=== PATIENT | female | born 1945 | race Caucasian/White ===

== ENCOUNTER → 2017-06-24 | Day surgery (SDC) | payer MEDICARE, OTHER ==
--- NOTE | 2017-06-24 09:11 | MMO ---
STEREOTACTIC GUIDED LEFT BREAST BIOPSY: Clinical history: Indeterminate left breast calcifications. Procedure: Informed consent was obtained. Patient was escorted to the procedural suite. Patient's left breast w as placed into compression on the stereotactic table and was then prepped and draped in standard dima rile fashion. Topical anesthesia was achieved with buffered 1% Lidocaine. Small skin incision was ma de through which a 10 gauge stereotactic biopsy needle was advanced to the leading edge of calcifica tions. This was confirmed and then deployed into the site of calcifications. Subsequently, six core specimens were acquired. Specimen radiograph reveals calcifications of interest in the biopsied specimens. Biopsy needle was then removed. Biopsy marking clip was advanced to and deployed within the site of biopsy. This was c onfirmed with mammographic imaging. No procedural complications. Patient was transferred to mammography to undergone post procedural clip placement views. IMPRESSION: Technically successful stereotactic left breast biopsy. Pathology results are pending. Patient will be notified upon receipt of the pathology results. POS: MARLENY
--- NOTE | 2017-06-24 09:16 | MMO ---
DIAGNOSTIC LEFT MAMMOGRAM: Clinical history: Status post left breast stereotactic biopsy with clip deployment. FINDINGS: There is heterogeneously dense breast parenchyma of the left breast. There has been deployment of a biopsy marker clip with interval reduction in number of previous calcifications of interest. IMPRESSION: Deployment of biopsy marking clip at site of prior calcifications which have decreased in number sta tus post stereotactic biopsy. POS: MARLENY
--- NOTE | 2017-06-24 16:01 | MMO ---
SPECIMEN RADIOGRAPH: Clinical history: Stereotactic biopsy. Specimen radiograph evaluation. FINDINGS: Radiographic of specimens reveal calcifications of interest. IMPRESSION: Calcifications of interest are present within the radiographic specimens status post stereotactic bi opsy of left breast. POS: MARLENY
== END ==
LOC: MAMMO 06:56
PROVIDERS: ATTEND Family Medicine
DX: D24.2 Benign neoplasm of left breast (principal)
CPT/HCPCS: 19081; 76098; 88305; G0206

== ENCOUNTER 2018-06-03 07:50 | Outpatient (CLI) | payer MEDICARE, OTHER | END 2018-06-03 07:51 | disposition home or self-care (01) | LOC: BICMAMMO 07:50 | PROVIDERS: ATTEND Family Medicine | DX: Z12.31 Encounter for screening mammogram for malignant neoplasm of breast (principal) | CPT/HCPCS: 77063; 77067 ==

== ENCOUNTER 2018-07-12 09:45 | Outpatient (CLI) | payer MEDICARE, OTHER ==
--- NOTE | 2018-07-12 11:55 | RAD ---
LUMBAR SPINE THREE VIEWS: History: Lumbar radiculopathy. FINDINGS: Lateral views were obtained in the neutral, flexion, and extension positions. Lumbar vertebrae mainta in normal height and alignment. Moderate degenerative disc changes are seen at all levels with loss o f disc space at all levels of the lumbar spine. Moderate osteophytes are present. Prominent facet hyp ertrophy. No evidence of spondylolisthesis. No significant change in alignment with flexion or extens ion. IMPRESSION: Moderate to severe hypertrophic degenerative changes and degenerative disc changes as described. POS: MARLENY
--- NOTE | 2018-07-12 12:42 | MRI ---
NONCONTRAST ENHANCED MRI OF THE LUMBAR SPINE: History: M54.16. Left bilateral leg pain and weakness, more prominent on the left. Technique: Multiplanar, multisequence noncontrast enhanced MRI images were obtained of the lumbar spi ne. FINDINGS: T12-L1: Mild facet hypertrophy obtained. The central canal and neural foramen are patent. L1-2: Disc desiccation is seen. There is mild facet hypertrophy. No significant degree of central or neural foraminal narrowing is seen. L2-3: Disc desiccation is seen. There is a broad based disc bulge with bilateral facet and ligamentum flavum hypertrophy resulting in minimal but not significant degree of central and lateral recess dima nosis. The neural foramen are patent. L3-4: Disc desiccation is seen. There is disc space height loss. There is a broad based disc osteophy te complex centrally with bilateral facet and ligamentous flavum hypertrophy resulting in a moderate degree of central and lateral recess stenosis. There is moderate right and minimal left sided neural foraminal narrowing. L4-5: Disc desiccation is seen. There is broad based disc osteophyte complex centrally. There is bila teral facet and ligamentum flavum hypertrophy. This results in moderate degree of central spinal sten osis. There is moderate to severe left L4-5 lateral recess stenosis. The right L4-5 lateral recess is patent. There is moderate bilateral neural foraminal narrowing due to the facet hypertrophy. L5-S1: Disc desiccation is seen. There is bilateral facet hypertrophy and some ligamentum flavum hype rtrophy. This results in mild to moderate left L5-S1 lateral recess stenosis. There is moderate to se torito left L5-S1 neural foraminal narrowing. There is mild to moderate right sided L5-S1 neural forami nal narrowing seen. IMPRESSION: Multilevel disc osteophyte complexes with facet hypertrophy resulting in predominately left sided lat eral recess stenosis. There is also multilevel areas of neural foraminal narrowing as described above . POS: MARLENY
== END 2018-07-12 09:46 | disposition home or self-care (01) ==
LOC: TBSIIMAG 09:45
PROVIDERS: ATTEND Anesthesiology Pain Medicine
DX: M47.26 Other spondylosis with radiculopathy, lumbar region (principal); M51.16 Intervertebral disc disorders with radiculopathy, lumbar region; M25.78 Osteophyte, vertebrae; M48.061 Spinal stenosis, lumbar region without neurogenic claudication; M99.83 Other biomechanical lesions of lumbar region
CPT/HCPCS: 72100; 72148

== ENCOUNTER 2018-08-18 01:13 | Observation (INO) | payer MEDICARE, OTHER ==
[2018-08-18] MEDS ORDERED: niCARdipine 20MG In NaCl 20 MG/200 ML BAG ONE (01:19)
[2018-08-18 04:00] LABS: Troponin I 0.018 ng/mL (< 0.028)
[2018-08-18 07:37] LABS: Troponin I 0.023 ng/mL (< 0.028)
[2018-08-18] MEDS ORDERED: HYDROcodone/Acetaminophen 5/325 mg Tablet PO PRN ×2 (09:21)
[2018-08-18] MEDS ORDERED: Acetaminophen 325 MG TAB PO PRN (09:21)
[2018-08-18] MEDS ORDERED: Acetaminophen 650 MG Suppository PR PRN (09:21)
[2018-08-18] MEDS ORDERED: Amlodipine 5 MG TAB ONE (09:32)
[2018-08-18] MEDS ORDERED: Spironolactone 25 MG TAB PO SCH (10:15)
[2018-08-18] MEDS ORDERED: Amlodipine 10 MG TAB PO SCH (10:15)
[2018-08-18] MEDS ORDERED: Carvedilol 6.25 MG TAB PO SCH ×2 (10:15→17:00)
[2018-08-18] MEDS ORDERED: Lisinopril/Hydrochlorothiazide 20 mg/12.5 mg Tablet PO SCH (10:15)
[2018-08-18] MEDS ORDERED: hydrALAZINE 20 MG/ML VIAL ONE (10:55)
[2018-08-18] MEDS ORDERED: hydrALAZINE 20 MG/ML VIAL SLOW IVP SCH (11:15)
[2018-08-18] MEDS ORDERED: Famotidine 20 MG TAB PO SCH (21:00)
[2018-08-19] MEDS ORDERED: Spironolactone 25 MG TAB PO SCH (08:00)
[2018-08-19] MEDS ORDERED: Amlodipine 5 MG TAB PO SCH (09:00)
[2018-08-19] MEDS ORDERED: Lisinopril/Hydrochlorothiazide 20 mg/12.5 mg Tablet PO SCH (09:00)
== END 2018-08-18 14:50 | disposition home or self-care (01) ==
LOC: ERS 01:13 → ERHOLD 05:33
PROVIDERS: ADMIT Internal Medicine; ATTEND Internal Medicine
DX: I16.0 Hypertensive urgency (principal); I10 Essential (primary) hypertension; G43.909 Migraine, unspecified, not intractable, without status migrainosus; Z79.899 Other long term (current) drug therapy
CPT/HCPCS: 84484 ×2; 96365; 96375; 99285; G0378; 36415; J0360

== ENCOUNTER 2019-10-04 08:25 | Outpatient (CLI) | payer MEDICARE, OTHER ==
--- NOTE | 2019-10-04 09:13 | MMO ---
Bilateral MAMMO Bilat Screen [facility]. CLINICAL HISTORY: Patient is 73 years old and is seen for screening. The patient has no family history of breast cancer. The patient has no personal history of cancer. VIEWS: The views performed were: bilateral craniocaudal with tomosynthesis and bilateral mediolateral oblique with tomosynthesis. FILMS COMPARED: The present examination has been compared to prior imaging studies performed at [facility] on 06/02/2017, 06/07/2017, 06/24/2017 and 06/03/2018. This study has been interpreted with the assistance of computer-aided detection. MAMMOGRAM FINDINGS: The breasts are heterogeneously dense, which could obscure a lesion on mammography. There are benign appearing calcifications. A biopsy clip is seen in the left breast. There are no suspicious masses, suspicious calcifications, or new areas of architectural distortion. IMPRESSION: THERE IS NO MAMMOGRAPHIC EVIDENCE OF MALIGNANCY. A ROUTINE FOLLOW-UP MAMMOGRAM IN 1 YEAR IS RECOMMENDED. THE RESULTS OF THIS EXAM WERE SENT TO THE PATIENT. ACR BI-RADS Category 2 - Benign finding MAMMOGRAPHY NOTE: 1. A negative mammogram report should not delay a biopsy if a dominant of clinically suspicious mass is present. 2. Approximately 10% to 15% of breast cancers are not detected by mammography. 3. Adenosis and dense breasts may obscure an underlying neoplasm. Reported by: CHRIS FERNÁNDEZ MD Electonically Signed: [id number]
== END 2019-10-04 08:26 | disposition home or self-care (01) ==
LOC: BICMAMMO 08:25
PROVIDERS: ATTEND Family Medicine
DX: Z12.31 Encounter for screening mammogram for malignant neoplasm of breast (principal)
CPT/HCPCS: 77063; 77067

== ENCOUNTER 2020-02-05 10:24 | Outpatient (CLI) | payer MEDICARE, OTHER ==
--- NOTE | 2020-02-05 11:11 | RAD ---
EXAM: XR Lumbar Spine 2 Or 3 View PROVIDED CLINICAL HISTORY: Lumbar radiculopathy. Patient complains of low back pain greater on the left. COMPARISON: 07/12/2018 5 FINDINGS: 5 nonrib-bearing lumbar type vertebral bodies are seen. Multilevel osteophytes are seen with narrowin g of the intervertebral disc spaces at all levels of lumbar spine greatest at the L4-5 level where there is severe loss of intervertebral disc height and endplate sclerosis. The vertebral body heights are within normal limits. No fracture or subluxation is seen based on lateral views. No abnormal translational motion is seen between the flexion-extension views. Facet degenerative changes are seen in the lumbar spine. Vascular calcifications are seen overlying the abdomen and involving the abdominal aorta and iliac ar teries. IMPRESSION: Multilevel degenerative changes lumbar spine without vertebral body height loss or evidence of sublux ation.
--- NOTE | 2020-02-05 11:55 | MRI ---
MRI Lumbar Spine Noncontrast: HISTORY: Muscle spasm and back. Lower back pain on left side with failed pain injections. COMPARISON: 07/12/2018 FINDINGS: Hyperintense lesions are again seen in the right kidney most compatible with small cysts. Remainder o f the visualized retroperitoneal structures demonstrate a normal MRI appearance. Conus medullaris is normal in morphology and terminates at the L1-2 level. Multilevel degenerative changes are present with narrowing of the intervertebral disc spaces at all l evels and endplate degenerative changes present. A few scattered Schmorl's nodes are present. Left convex scoliosis lumbar spine is again seen. T12-L1: Mild facet degenerative changes. Mild disc osteophyte complex present without significant tara tral canal or neural foraminal narrowing. L1-2: Mild disc osteophyte complex and facet hypertrophic changes. No significant central canal or ne ural foraminal narrowing. L2-3: Broad-based disc osteophyte complex and facet hypertrophic changes. Mild central canal narrowin g is present. A right paracentral disc protrusion is present which results in mass effect on the right anterolateral aspect of the thecal sac and the traversing right L3 nerve root. This is stable f rom prior exam. Neural foramina are patent. L3-4: Disc osteophyte complex and facet hypertrophic changes resulting in mild narrowing of the centr al spinal canal. Mild right-sided neural foraminal narrowing is present. The left neural foramen is patent. L4-5: Broad-based disc osteophyte complex and facet hypertrophic changes with ligamentous thickening. [id number] central canal narrowing is present with narrowing of the lateral recesses. Moderate bilateral neural foraminal narrowing is again seen and similar to prior study. L5-S1: Broad-based disc osteophyte complex and facet hypertrophic changes with facet hypertrophic luis fernando nges greater on the left where there is associated mild ligamentous thickening. A far lateral left disc osteophyte complex is also present. Moderate to severe left-sided neural foraminal narrowing is present with mild right-sided neural foraminal narrowing. IMPRESSION: 1. Multilevel degenerative changes throughout the lumbar spine not significantly progressed when comp ared to the prior study. 2. Left convex scoliosis lumbar spine.
== END 2020-02-05 10:25 | disposition home or self-care (01) ==
LOC: TBSIIMAG 10:24
PROVIDERS: ATTEND Anesthesiology Pain Medicine
DX: M47.26 Other spondylosis with radiculopathy, lumbar region (principal); M62.830 Muscle spasm of back; M41.86 Other forms of scoliosis, lumbar region
CPT/HCPCS: 72100; 72148

== ENCOUNTER 2021-04-10 08:53 | Outpatient (CLI) | payer MEDICARE, OTHER | END 2021-04-10 08:54 | disposition home or self-care (01) | LOC: BICMAMMO 08:53 | PROVIDERS: ATTEND Family Medicine | DX: Z12.31 Encounter for screening mammogram for malignant neoplasm of breast (principal) | CPT/HCPCS: 77063; 77067 ==

== ENCOUNTER 2021-10-30 14:15 | Outpatient (CLI) | payer MEDICARE, OTHER ==
[2021-10-30 15:12] LABS: #Basophils 0.1 10x3/uL (0.0-0.2); #Eosinphils 0.2 10x3/uL (0.0-0.5); #Monocytes 0.9 10x3/uL (0.0-1.1); #Neutrophils 4.7 10x3/uL (1.5-8.4); %Basophils 0.6 % (0.0-2.0); %Eosinophils 1.7 % (0.0-6.0); %Lymphocytes 35.9 % (18.0-47.0); %Monocytes 9.7 % (0.0-10.0); %Neutrophils 51.9 % (40.0-75.0); Hemoglobin 13.5 g/dL (12.0-15.5); Mean Corpuscular HGB CONC 33.2 g/dL (32.0-36.0); Mean Corpuscular Volume 96.4 fl (81.6-98.3); Mean Platelet Volume 9.7 fl (7.4-10.4); Platelet Count 298 10x3/uL (150-450); RBC Distribution Width 12.8 % (11.5-14.5); Red Blood Cell (RBC) Count 4.22 10x6/uL (3.90-5.03); White Blood Cell (WBC) Count 9.1 10x3/uL (3.5-10.5)
[2021-10-30 15:26] LABS: Prothrombin Time 10.8 sec (9.5-12.1)
[2021-10-30 15:39] LABS: Anion Gap 15 mmol/L (10-20); BUN (Urea Nitrogen) 20 mg/dL (9.8-20.1); Calc. Creatinine Clearance 0 mL/min (70-130); Calcium 10.5 mg/dL (7.8-10.44); Carbon Dioxide 27 mmol/L (23-31); Chloride 107 mmol/L (98-107); Glucose 110 mg/dL (83-110); Potassium 4.3 mmol/L (3.5-5.1); Sodium 145 mmol/L (136-145)
[2021-10-31 00:12] LABS: SARS-CoV-2 PCR by NAA Not Detected (NotDetected)
== END 2021-10-30 14:16 | disposition home or self-care (01) ==
LOC: LABBT 14:15
PROVIDERS: ATTEND Orthopaedic Surgery
DX: Z01.818 Encounter for other preprocedural examination (principal); M17.12 Unilateral primary osteoarthritis, left knee; Z20.822 Contact with and (suspected) exposure to COVID-19
CPT/HCPCS: 80048; 85025; 85610; 87081; 93005; U0003; U0005; 93010

== ENCOUNTER 2021-11-04 06:15 | Observation (INO) | payer MEDICARE, OTHER ==
[2021-10-29 11:05] VITALS: BMI 24.3
[2021-11-04] MEDS ORDERED: Tranexamic Acid 1,000 MG/10 ML VIAL ONE (07:43)
[2021-11-04] MEDS ORDERED: Vancomycin 1 GM/200 ML BAG ONE (07:43)
[2021-11-04] MEDS ORDERED: Sodium Chloride 0.9% 100 ML ONE (08:12)
[2021-11-04] MEDS ORDERED: Midazolam HCl 2 mg/2 ml Vial ONE (08:12)
[2021-11-04] MEDS ORDERED: Fentanyl 100 MCG/2 ML VIAL IV PRN (08:39)
[2021-11-04] MEDS ORDERED: traMADol HCl 50 MG TAB PO PRN ×2 (08:45)
[2021-11-04] MEDS ORDERED: Zolpidem Tartrate 5 MG TAB PO PRN ×2 (08:45→10:44)
[2021-11-04] MEDS ORDERED: Ondansetron PF 4 MG/2 ML Vial IVP PRN ×2 (08:45→10:44)
[2021-11-04] MEDS ORDERED: HYDROcodone/Acetaminophen 10/325 mg Tablet PO PRN (08:45)
[2021-11-04] MEDS ORDERED: Ropivacaine 0.2% 550 ML 550 ML NERVE BLCK SCH (08:45)
[2021-11-04] MEDS ORDERED: Promethazine HCl 25 MG/ML VIAL IM PRN ×2 (08:45→10:44)
[2021-11-04] MEDS ORDERED: Bupivacaine PF 0.5% 30 ML VIAL ONE (09:04)
[2021-11-04] MEDS ORDERED: Fentanyl 250 MCG/5 ML VIAL ONE ×2 (09:08→10:50)
[2021-11-04] MEDS ORDERED: ceFAZolin Sodium (SDC) 2 GM/100 ML BAG ONE (09:10)
[2021-11-04] MEDS ORDERED: Lidocaine 1% PF 5 ML VIAL ONE (09:28)
[2021-11-04] MEDS ORDERED: PROPOFOL 200 MG/20 ML VIAL ONE (09:28)
[2021-11-04] MEDS ORDERED: PHENYLEPHRINE-NS 100 MCG/ML 10 ML SYRINGE ONE (09:28)
[2021-11-04] MEDS ORDERED: Bupivacaine HCl 0.5%/Epinephrine 1:200,000/PF 30 ml Vial ONE (09:28)
[2021-11-04] MEDS ORDERED: Dexamethasone 20 MG/5 ML VIAL ONE (09:28)
[2021-11-04] MEDS ORDERED: Ondansetron PF 4 MG/2 ML Vial ONE (09:28)
[2021-11-04] MEDS ORDERED: ePHEDrine 50 MG/ML VIAL ONE (09:28)
[2021-11-04] MEDS ORDERED: Acetaminophen 325 MG TAB PO PRN (10:44)
[2021-11-04] MEDS ORDERED: diphenhydrAMINE 25 MG CAP PO PRN (10:44)
[2021-11-04] MEDS ORDERED: Meclizine HCl 25 MG TAB PO PRN (10:45)
[2021-11-04] MEDS ORDERED: Amitriptyline HCl 25 MG TAB PO PRN (10:45)
[2021-11-04] MEDS ORDERED: Sucralfate 1 GM TAB PO PRN (10:45)
[2021-11-04] MEDS ORDERED: ceFAZolin 2 GM/Dextrose 50 ML 2 GM in Premix Bag 1 BAG IVPB SCH (10:45)
[2021-11-04] MEDS ORDERED: Acetaminophen ER (8hr) 650 MG TAB PO PRN (10:45)
[2021-11-04] MEDS ORDERED: Rizatriptan Benzoate 10 MG MLT TAB PO PRN (10:45)
[2021-11-04] MEDS ORDERED: Promethazine 25 MG TAB PO PRN (10:45)
[2021-11-04] MEDS ORDERED: HYDROmorphone 0.5 MG/0.5 ML SYRINGE ONE ×2 (11:02→11:22)
[2021-11-04] MEDS: Ketorolac Tromethamine 30 MG/ML VIAL IVP SCH ×2 (13:00→17:11)
[2021-11-04] MEDS: HYDROcodone/Acetaminophen 10/325 mg Tablet PO PRN ×3 (13:00→21:21)
[2021-11-04] MEDS: Sodium Chloride 0.9% 1,000 ML IV SCH ×2 (16:35→20:32)
[2021-11-04] MEDS: CEFAZOLIN 2 GM, Admixture Fee 1 EACH in Sodium Chloride 0.9% 100 ML IVPB SCH (17:04)
[2021-11-04] MEDS: Carvedilol 6.25 MG TAB PO SCH (17:04)
[2021-11-04] MEDS: Atorvastatin Calcium 20 MG TAB PO SCH (20:31)
[2021-11-04] MEDS: Aspirin 81 mg Enteric Coated Tablet PO SCH (20:31)
[2021-11-04] MEDS: Lisinopril/Hydrochlorothiazide 20 mg/12.5 mg Tablet PO SCH (20:31)
[2021-11-05] MEDS: CEFAZOLIN 2 GM, Admixture Fee 1 EACH in Sodium Chloride 0.9% 100 ML IVPB SCH (00:44)
[2021-11-05] MEDS: Ketorolac Tromethamine 30 MG/ML VIAL IVP SCH ×4 (00:44→17:37)
[2021-11-05 05:26] LABS: Hemoglobin 11.9 g/dL (12.0-16.0); Mean Corpuscular HGB CONC 33.2 g/dL (32.0-36.0); Mean Corpuscular Hemoglobin 32.7 pg (27.0-31.0); Mean Corpuscular Volume 98.6 fL (78.0-98.0); Mean Platelet Volume 7.2 fL (7.4-10.4); Platelet Count 267 thou/uL (130-400); RBC Distribution Width 11.8 % (11.5-14.5); Red Blood Cell (RBC) Count 3.62 mill/uL (4.20-5.40); White Blood Cell (WBC) Count 18.2 thou/uL (4.8-10.8)
[2021-11-05] MEDS: Sodium Chloride 0.9% 1,000 ML IV SCH ×2 (05:32→17:38)
[2021-11-05] MEDS: LACTINEX 1 TAB PO SCH (09:08)
[2021-11-05] MEDS: Senokot S 8.6-50 MG TAB PO SCH ×2 (09:08→20:46)
[2021-11-05] MEDS: Aspirin 81 mg Enteric Coated Tablet PO SCH ×2 (09:09→20:46)
[2021-11-05] MEDS: Multivitamin W/ Minerals 1 TAB PO SCH (09:09)
[2021-11-05] MEDS: Zinc Sulfate 220 MG CAP PO SCH (09:09)
[2021-11-05] MEDS: Ferrous Gluconate 324 MG TAB PO SCH ×2 (09:09→20:46)
[2021-11-05] MEDS: Cholecalciferol 1,000 UNITS (25 MCG) TAB PO SCH (09:09)
[2021-11-05] MEDS: HYDROcodone/Acetaminophen 10/325 mg Tablet PO PRN ×3 (09:10→18:41)
[2021-11-05] MEDS: Spironolactone 25 MG TAB PO SCH (09:12)
[2021-11-05] MEDS: Lisinopril/Hydrochlorothiazide 20 mg/12.5 mg Tablet PO SCH ×2 (09:41→20:46)
[2021-11-05] MEDS: Amlodipine 5 MG TAB PO SCH (09:41)
[2021-11-05] MEDS: Carvedilol 6.25 MG TAB PO SCH ×2 (09:41→17:38)
[2021-11-05] MEDS ORDERED: Polyethylene Glycol 3350 17 GM Packet PO SCH (15:00)
[2021-11-05] MEDS: Polyethylene Glycol 3350 17 GM Packet PO SCH (15:03)
[2021-11-05] MEDS: Atorvastatin Calcium 20 MG TAB PO SCH (20:46)
[2021-11-06] MEDS: HYDROcodone/Acetaminophen 10/325 mg Tablet PO PRN ×3 (00:14→09:30)
[2021-11-06] MEDS: Ketorolac Tromethamine 30 MG/ML VIAL IVP SCH ×2 (00:15→05:43)
[2021-11-06] MEDS: Sodium Chloride 0.9% 1,000 ML IV SCH (04:03)
[2021-11-06 08:27] VITALS: TEMP 98.1
[2021-11-06] MEDS: Aspirin 81 mg Enteric Coated Tablet PO SCH (09:30)
[2021-11-06] MEDS: Multivitamin W/ Minerals 1 TAB PO SCH (09:30)
[2021-11-06] MEDS: Senokot S 8.6-50 MG TAB PO SCH (09:30)
[2021-11-06] MEDS: Carvedilol 6.25 MG TAB PO SCH (09:30)
[2021-11-06] MEDS: Zinc Sulfate 220 MG CAP PO SCH (09:30)
[2021-11-06 09:31] VITALS: BP 116/69
[2021-11-06] MEDS: Spironolactone 25 MG TAB PO SCH (09:31)
[2021-11-06] MEDS: Ferrous Gluconate 324 MG TAB PO SCH (09:31)
[2021-11-06] MEDS: Amlodipine 5 MG TAB PO SCH (09:31)
[2021-11-06] MEDS: Lisinopril/Hydrochlorothiazide 20 mg/12.5 mg Tablet PO SCH (09:31)
[2021-11-06] MEDS: LACTINEX 1 TAB PO SCH (09:31)
[2021-11-06] MEDS: Polyethylene Glycol 3350 17 GM Packet PO SCH (09:31)
[2021-11-06] MEDS: Cholecalciferol 1,000 UNITS (25 MCG) TAB PO SCH (09:33)
== END 2021-11-06 11:30 | disposition home health service (06) ==
LOC: SDC 06:15 → SJJU 12:13 → SDC 12:45 → SJJU 12:46
PROVIDERS: ADMIT Orthopaedic Surgery; ATTEND Orthopaedic Surgery
PROC: 0SRD0J9 Replacement of Left Knee Joint with Synthetic Substitute, Cemented, Open Approach (ICD-10-PCS; principal; 2021-11-04)
PROC: 8E0YXBZ Computer Assisted Procedure of Lower Extremity (ICD-10-PCS; 2021-11-04)
PROC: 3E0T3BZ Introduction of Anesthetic Agent into Peripheral Nerves and Plexi, Percutaneous Approach (ICD-10-PCS; 2021-11-04)
DX: M17.12 Unilateral primary osteoarthritis, left knee (principal); G89.29 Other chronic pain; M54.9 Dorsalgia, unspecified; I10 Essential (primary) hypertension; M06.9 Rheumatoid arthritis, unspecified; F17.210 Nicotine dependence, cigarettes, uncomplicated; Z79.899 Other long term (current) drug therapy
CPT/HCPCS: 20985; 27447; 64448; 73560; 85027; 97110 ×3; 97116 ×3; 97139 ×2; 97530 ×2; A4306; C1713; C1776; 36415; 96374; 96375; 96376; G0378; J0690; J1100; J1170; J1885; J2250; J2405; J2704; J2795; J3010; J3370; J3490; S0020

== ENCOUNTER 2022-02-04 07:18 | Outpatient (CLI) | payer MEDICARE, OTHER | END 2022-02-04 07:19 | disposition home or self-care (01) | LOC: BICCT 07:18 | PROVIDERS: ATTEND Physician Assistant Medical | DX: R10.13 Epigastric pain (principal); K59.01 Slow transit constipation; R63.4 Abnormal weight loss; R63.0 Anorexia; N20.0 Calculus of kidney | CPT/HCPCS: 74177; 82565 ==

== ENCOUNTER 2022-04-22 08:30 | Outpatient (CLI) | payer MEDICARE, OTHER | END 2022-04-22 08:31 | disposition home or self-care (01) | LOC: BICMAMMO 08:30 | PROVIDERS: ATTEND Family Medicine | DX: Z12.31 Encounter for screening mammogram for malignant neoplasm of breast (principal); Z91.89 Other specified personal risk factors, not elsewhere classified | CPT/HCPCS: 77063; 77067 ==

== ENCOUNTER 2022-06-08 12:10 | Outpatient (CLI) | payer MEDICARE, OTHER | END 2022-06-08 12:11 | disposition home or self-care (01) | LOC: SCSMRI 12:10 | PROVIDERS: ATTEND Anesthesiology Pain Medicine | DX: M48.02 Spinal stenosis, cervical region (principal); M47.812 Spondylosis without myelopathy or radiculopathy, cervical region | CPT/HCPCS: 72141 ==

== ENCOUNTER 2023-05-18 09:20 | Outpatient (CLI) | payer MEDICARE, OTHER | END 2023-05-18 09:21 | disposition home or self-care (01) | LOC: SCSMRI 09:20 | PROVIDERS: ATTEND Anesthesiology Pain Medicine | DX: M54.16 Radiculopathy, lumbar region (principal) | CPT/HCPCS: 72110; 72148 ==

== ENCOUNTER 2023-05-21 09:58 | Outpatient (CLI) | payer MEDICARE, OTHER ==
[2023-05-21] MEDS ORDERED: Iopamidol-370 76% 500 ML MDV (1 ML CHARGE) ONE (11:08)
== END 2023-05-21 09:59 | disposition home or self-care (01) ==
LOC: BICCT 09:58
PROVIDERS: ATTEND Physician Assistant Medical
DX: N20.0 Calculus of kidney (principal); N28.1 Cyst of kidney, acquired; R10.9 Unspecified abdominal pain; R61 Generalized hyperhidrosis
CPT/HCPCS: 74177; 82565; Q9967

== ENCOUNTER 2024-06-15 08:08 | Outpatient (CLI) | payer MEDICARE, OTHER | END 2024-06-15 08:09 | disposition home or self-care (01) | LOC: BICMAMMO 08:08 | PROVIDERS: ATTEND Family Medicine | DX: Z12.31 Encounter for screening mammogram for malignant neoplasm of breast (principal); Z78.0 Asymptomatic menopausal state; M85.851 Other specified disorders of bone density and structure, right thigh; M85.852 Other specified disorders of bone density and structure, left thigh | CPT/HCPCS: 77067; 77080 ==

== ENCOUNTER 2024-08-11 08:48 | Outpatient (CLI) | payer MEDICARE, OTHER | END 2024-08-11 08:49 | disposition home or self-care (01) | LOC: MRI 08:48 | PROVIDERS: ATTEND Family Medicine | DX: R42 Dizziness and giddiness (principal); H83.2X2 Labyrinthine dysfunction, left ear; R90.82 White matter disease, unspecified | CPT/HCPCS: 70551 ==

== ENCOUNTER 2024-09-04 08:27 | Outpatient (CLI) | payer MEDICARE, OTHER ==
[2024-09-04] MEDS ORDERED: Magnevist 469MG/ML 20 ML VIAL ONE (13:29)
== END 2024-09-04 08:28 | disposition home or self-care (01) ==
LOC: MRI 08:27
PROVIDERS: ATTEND Family Medicine
DX: R42 Dizziness and giddiness (principal); H74.8X2 Other specified disorders of left middle ear and mastoid; I67.82 Cerebral ischemia; R90.82 White matter disease, unspecified; G46.3 Brain stem stroke syndrome
CPT/HCPCS: 70553; 76376

== ENCOUNTER 2025-05-03 08:39 | Outpatient (CLI) | payer MEDICARE, OTHER ==
[2025-05-03 09:32] LABS: Estimated GFR - POC 88.0
[2025-05-03] MEDS ORDERED: Iopamidol 370 76% 100 ML VIAL ONE (11:59)
== END 2025-05-03 08:40 | disposition home or self-care (01) ==
LOC: CT 08:39
PROVIDERS: ATTEND Internal Medicine Gastroenterology
DX: R10.31 Right lower quadrant pain (principal); K58.1 Irritable bowel syndrome with constipation; R15.9 Full incontinence of feces
CPT/HCPCS: 36415; 74177; 82565; Q9967

== ENCOUNTER 2025-06-22 08:55 | Outpatient (CLI) | payer MEDICARE, OTHER | END 2025-06-22 08:56 | disposition home or self-care (01) | LOC: BICMAMMO 08:55 | PROVIDERS: ATTEND Family Medicine | DX: Z12.31 Encounter for screening mammogram for malignant neoplasm of breast (principal); Z91.89 Other specified personal risk factors, not elsewhere classified | CPT/HCPCS: 77063; 77067 ==